=== PATIENT | female | born 1935 | race Caucasian/White ===

== ENCOUNTER 2022-10-12 08:22 | Inpatient (IN) ==
[2022-10-12] MEDS ORDERED: Morphine 4 MG/ML VIAL (1 ml) IV ONE ×2 (08:34→09:58)
[2022-10-12] MEDS ORDERED: Ondansetron 4 mg VIAL 2 MG/ML 2 ml VIAL IV ONE (08:34)
[2022-10-12 08:57] LABS: ABS Basophils 0.1 10^3/uL (0.0-0.1); ABS Eosinophils 0.1 10^3/uL (0.0-0.5); ABS Monocytes 0.6 10^3/uL (0.0-0.9); ABS Neutrophils 5.6 10^3/uL (1.5-7.6); ABS Nucleated RBC 0.01 10^3/ul; Eosinophil % 1.8 %; Hematocrit 36.9 % (35-45); Lymphocyte % 23.8 %; Mean Corpuscular Hemoglobin 32.8 pg (27-33); Mean Corpuscular Hgb Conc 35.3 g/dL (31-36); Mean Corpuscular Volume 92.9 fL (80-97); Mean Platelet Volume 6.9 fL (7.5-11.2); Nucleated Red Blood Cells % 0.1 /100 WBC (0.0-0.4); Platelet Count 235 10^3/uL (150-450); Red Blood Count 3.97 10^6/uL (3.63-4.92); White Blood Count 8.5 10^3/uL (3.8-11.8)
[2022-10-12 09:23] LABS: Albumin 4.3 g/dL (3.2-5.2); Albumin/Globulin Ratio 1.4 (1-3); Calcium 9.2 mg/dL (8.6-10.3); Creatinine, Serum 1.01 mg/dL (0.51-0.95); Globulin 3.1 g/dL (2-4); Potassium 3.8 mmol/L (3.5-5.0); Total Bilirubin 0.6 mg/dL (0.2-1.0); Total Protein 7.4 g/dL (6.4-8.9); eGFR CKD-EPI 54.2 (>60)
[2022-10-12] MEDS ORDERED: Ondansetron 4 mg VIAL 2 MG/ML 2 ml VIAL IV PRN (09:54)
[2022-10-12] MEDS ORDERED: Morphine 2 MG/ML SYRINGE IV PRN (09:56)
[2022-10-12] MEDS ORDERED: Lactated Ringers 1000 ml BAG 1,000 ML IV ONE (09:58)
[2022-10-12] MEDS ORDERED: Magnesium Hydroxide LIQ 30 ML UDC PO PRN (10:49)
[2022-10-12] MEDS ORDERED: Senna TAB 8.6 mg TAB PO PRN (10:49)
[2022-10-12] MEDS ORDERED: Polyethylene Glycol 3350 BTL 238 GM BTL PO PRN (10:49)
[2022-10-12] MEDS ORDERED: Enoxaparin 40 MG/0.4 ML SYR SUBCUT ONE (11:07)
[2022-10-12] MEDS ORDERED: Polyethylene Glycol 3350 17 GM PACKET PO PRN (12:00)
[2022-10-12] MEDS: Acetaminophen IV 1 GM/100ML 1,000 MG/100 ML BAG IV PRN (14:05)
[2022-10-12] MEDS: Magnesium Hydroxide LIQ 30 ML UDC PO SCH (21:00)
[2022-10-13] MEDS: Acetaminophen IV 1 GM/100ML 1,000 MG/100 ML BAG IV PRN (04:09)
[2022-10-13 06:29] LABS: ABS Lymphocytes 1.1 10^3/uL (1.0-4.8); ABS Neutrophils 10.1 10^3/uL (1.5-7.6); Hematocrit 28.3 % (35-45); Hemoglobin 9.8 g/dL (11.5-14.3); Lymphocyte % 9.1 %; Mean Corpuscular Hemoglobin 32.4 pg (27-33); Mean Corpuscular Hgb Conc 34.5 g/dL (31-36); Mean Corpuscular Volume 93.9 fL (80-97); Mean Platelet Volume 7.5 fL (7.5-11.2); Platelet Count 198 10^3/uL (150-450); Red Blood Count 3.01 10^6/uL (3.63-4.92); Red Cell Distribution Width 12.9 % (12-17); White Blood Count 12.3 10^3/uL (3.8-11.8)
[2022-10-13 06:35] LABS: INR 1.13 (0.88-1.18)
[2022-10-13 06:54] LABS: Calcium 8.5 mg/dL (8.6-10.3); Creatinine, Serum 0.97 mg/dL (0.51-0.95); Potassium 4.1 mmol/L (3.5-5.0); eGFR CKD-EPI 56.9 (>60)
[2022-10-13] MEDS: Magnesium Hydroxide LIQ 30 ML UDC PO SCH ×2 (07:49→21:15)
[2022-10-13] MEDS: DULoxetine DR 60 mg CAP PO SCH (07:49)
[2022-10-13] MEDS: DEXLANSOPRAZOLE 60 MG PO SCH (07:49)
[2022-10-13] MEDS: Fluticasone NASAL SPRAY 50MCG 16 gm SPRAY BTL INTRANASAL SCH (07:50)
[2022-10-13] MEDS ORDERED: ceFAZolin 2 GM in NS PREMIX 2 GM/100 ML BAG IVPB ONE (10:49)
[2022-10-13] MEDS ORDERED: Famotidine IV 10 MG/ML 2 ml VIAL (20 mg) IV ONE (14:11)
[2022-10-13] MEDS ORDERED: Midazolam 2 mg/2 ml VIAL 1 mg/ml 2 ml VIAL (2 mg) ONE ×2 (14:15→16:38)
[2022-10-13] MEDS ORDERED: fentaNYL 100 mcg/2 ml 50 MCG/ML VIAL ONE ×3 (14:15→16:38)
[2022-10-13] MEDS ORDERED: Propofol 10 MG/ML 20 ML BTL ONE ×2 (14:15→15:28)
[2022-10-13] MEDS ORDERED: Lidocaine 2% PF 5 ML VIAL ONE ×2 (14:15→14:37)
[2022-10-13] MEDS ORDERED: Ketamine HCL 50 mg/ml 10 ml VIAL (500 MG) ONE (14:16)
[2022-10-13] MEDS ORDERED: Phenylephrine 40 mcg/mL 10mL (400mcg) SYRINGE ONE ×2 (14:16→15:51)
[2022-10-13] MEDS ORDERED: Bupivacaine 0.5% SDV PF 30ML VIAL ONE (14:16)
[2022-10-13] MEDS ORDERED: Etomidate 20 mg/10 ml 2 MG/ML 10 ml VIAL ONE (14:37)
[2022-10-13] MEDS ORDERED: Bupivacaine 0.5% W/EPI SDV 10 ML VIAL INJ ONE (16:02)
[2022-10-13] MEDS ORDERED: Bupivacaine 0.25% SDV 30 ML ONE (16:03)
[2022-10-13] MEDS: ceFAZolin 1 GM X 3 DOSES POST-OP Q8H (AddVan) IVPB SCH (23:13)
[2022-10-14] MEDS: Acetaminophen IV 1 GM/100ML 1,000 MG/100 ML BAG IV PRN (06:46)
[2022-10-14] MEDS: ceFAZolin 1 GM X 3 DOSES POST-OP Q8H (AddVan) IVPB SCH ×2 (07:36→15:04)
[2022-10-14] MEDS: DULoxetine DR 60 mg CAP PO SCH (08:19)
[2022-10-14] MEDS: Magnesium Hydroxide LIQ 30 ML UDC PO SCH ×2 (08:19→20:22)
[2022-10-14] MEDS: DEXLANSOPRAZOLE 60 MG PO SCH (08:19)
[2022-10-14] MEDS: Enoxaparin 40 MG/0.4 ML SYR SUBCUT SCH (08:20)
[2022-10-14] MEDS ORDERED: Lactated Ringers 1000 ml BAG 1,000 ML IV ONE ×2 (09:38→11:30)
[2022-10-14] MEDS: Fluticasone NASAL SPRAY 50MCG 16 gm SPRAY BTL INTRANASAL SCH (09:54)
[2022-10-14 21:11] LABS: Urine Appearance Turbid; Urine Bilirubin Negative (Negative); Urine Blood 1+ (Negative); Urine Color Yellow; Urine Glucose Negative (Negative); Urine Ketones Trace (Negative); Urine Nitrite Negative (Negative); Urine Protein 1+(30 mg/dL) (Negative); Urine Specific Gravity 1.017 (1.002-1.030); Urine Urobilinogen Negative (Negative)
[2022-10-14 21:18] LABS: Urine Bacteria 1+ (Absent); Urine Red Blood Cell 3+(>10/hpf) (Absent); Urine Squamous Epithelial Cell Present (Absent); Urine White Blood Cell 3+(>20/hpf) (Absent)
[2022-10-15] MEDS: DULoxetine DR 60 mg CAP PO SCH (09:36)
[2022-10-15] MEDS: DEXLANSOPRAZOLE 60 MG PO SCH (09:36)
[2022-10-15] MEDS: Magnesium Hydroxide LIQ 30 ML UDC PO SCH ×2 (09:41→21:09)
[2022-10-15] MEDS: Fluticasone NASAL SPRAY 50MCG 16 gm SPRAY BTL INTRANASAL SCH (09:42)
[2022-10-15] MEDS: Enoxaparin 40 MG/0.4 ML SYR SUBCUT SCH (09:43)
[2022-10-16] MEDS: DULoxetine DR 60 mg CAP PO SCH (09:01)
[2022-10-16] MEDS: Magnesium Hydroxide LIQ 30 ML UDC PO SCH ×2 (09:01→20:28)
[2022-10-16] MEDS: Enoxaparin 40 MG/0.4 ML SYR SUBCUT SCH (09:01)
[2022-10-16] MEDS: DEXLANSOPRAZOLE 60 MG PO SCH (09:03)
[2022-10-16] MEDS: Fluticasone NASAL SPRAY 50MCG 16 gm SPRAY BTL INTRANASAL SCH (09:03)
[2022-10-16 09:52] LABS: Rapid COVID-19 Molecular Undetected (Undetected)
[2022-10-17] MEDS: Magnesium Hydroxide LIQ 30 ML UDC PO SCH (09:38)
[2022-10-17] MEDS: DULoxetine DR 60 mg CAP PO SCH (09:40)
[2022-10-17] MEDS: DEXLANSOPRAZOLE 60 MG PO SCH (09:41)
[2022-10-17] MEDS: Fluticasone NASAL SPRAY 50MCG 16 gm SPRAY BTL INTRANASAL SCH (09:42)
[2022-10-17] MEDS: Enoxaparin 40 MG/0.4 ML SYR SUBCUT SCH (09:43)
[2022-10-18] MEDS: Fluticasone NASAL SPRAY 50MCG 16 gm SPRAY BTL INTRANASAL SCH (09:26)
[2022-10-18] MEDS: DEXLANSOPRAZOLE 60 MG PO SCH (09:32)
[2022-10-18] MEDS: DULoxetine DR 60 mg CAP PO SCH (09:32)
[2022-10-18] MEDS: Enoxaparin 40 MG/0.4 ML SYR SUBCUT SCH (09:34)
[2022-10-18 10:12] VITALS: BP 135/63
== END 2022-10-18 12:25 | DRG 481 ==
LOC: ED 08:22 → EDHOLD 09:54 → SUATTDRO 09:54 → SSU 14:30
PROVIDERS: ADMIT Student in an Organized Health Care Education/Training Program; ATTEND Internal Medicine